=== PATIENT | male | born 1950 | race Caucasian/White ===

== ENCOUNTER 2020-10-27 14:40 | Emergency (ER) | payer OTHER, MEDICARE, SELFPAY ==
[2020-10-27 15:48] VITALS: BP 134/74; PULSE 106; RESP 20; TEMP 38.7; O2SAT 91; BMI 37.3
[2020-10-27 19:52] VITALS: BP 140/62; PULSE 88; RESP 20; TEMP 37.4; O2SAT 95
--- NOTE | 2020-10-27 19:58 | W.ED.FEVER ---
HPI - Fever General: Chief Complaint: Fever Stated Complaint: had teeth extracted 10.25,now fever,cough Time Seen by Provider: 10/27/20 19:54 History of Present Illness: HPI Narrative: This patient is a 70-year-old male who presents to the emergency department with complaint of fever. Patient had tooth extractions approximately 2 days ago but had his dentures placed in his mouth apparently after extraction and patient's been wearing his dentures consistently the entire time. Patient noticed that he started having some spiking fevers today. Patient is taking penicillin VK. Patient does have a history of COPD but denies any shortness of breath. On exam is concerning for possible frontal abscess or infection of the gumline. Dentures have been removed. Medical evaluation treat as needed MD elicited complaint: fever Associated symptoms: Deny abdominal pain, flank pain, chills, chest pain, dysuria, extremity pain, headache(s), nausea or vomiting Review of Systems General: Reports: 10 or more systems reviewed and unremarkable except in HPI and below Const: Reports: fever(s); Denies: chills, body aches or fatigue Eyes: Denies: change in vision or blurry vision ENMT: Reports: dental pain; Denies: throat pain, hoarseness or mouth pain Card: Denies: chest pain, palpitations, irregular heart rhythm, edema, swelling of feet/ankles or lightheadedness Resp: Denies: dyspnea, productive cough, non-productive cough, wheezing or pain on inspiration GI: Denies: abdominal pain, nausea or vomiting : Denies: flank pain, dysuria, urinary frequency, urinary urgency or urinary hesitancy Musc: Denies: neck pain, back pain, extremity pain, extremity swelling, joint pain, joint swelling, joint redness, joint warmth or limited range of motion Skin/Breast: Denies: rash, pruritus, erythema or skin tenderness Neuro: Denies: headache(s), numbness in extremities or weakness in extremities Psych: Denies: anxiety or depression Physical Exam Const: COMMON NORMALS: no acute distress, average body habitus, patient oriented x3, no limitations, healthy appearing, alert and well nourished HENMT: COMMON NORMALS: normocephalic, atraumatic, hearing grossly normal bilaterally, external ears normal, EAC's normal, TM's normal bilaterally, Normal external nose present, Normal nasal mucous membranes and turbinates present, moist oral mucous membranes, oropharynx normal and dentition normal HEAD & SCALP: normocephalic and atraumatic NOSE: Normal external nose present and Normal nasal mucous membranes and turbinates present EXTERNAL EAR: Yes external ears normal EXTERNAL AUDITORY CANAL: EAC's normal TYMPANIC MEMBRANE: TM's normal bilaterally TEETH & GINGIVA IMAGES: 1. Concerning for gingival infection. Neck/C-Spine: COMMON NORMALS: full ROM, no lymphadenopathy, supple, no meningeal signs, no JVD, Thyroid normal and No carotid bruits THYROID: Thyroid normal Chest: COMMONS NORMALS: normal inspection of the chest, normal palpation of entire chest wall, normal inspection of the breasts and normal palpation of the breasts Breast/axilla inspection: Yes normal inspection of the breasts BREAST/AXILLA PALPATION: Yes normal palpation of the breasts Resp: COMMON NORMALS: normal respiratory effort, No retractions, No use of accessory muscles, clear to auscultation bilaterally and percussion normal AUSCULTATION: clear to auscultation bilaterally PERCUSSION: percussion normal Cardio: COMMON NORMALS: no JVD, regular rate, regular rhythm, S1 normal heart sound present, S2 normal heart sound present, No gallops present (Cardio), No clicks present (Cardio), No murmurs present (Cardio), No rub (Cardio) and Peripheral pulses 2+ throughout RATE: regular rate RHYTHM: regular rhythm HEART SOUNDS: S1 normal heart sound present and S2 normal heart sound present PERIPHERAL PULSES: Peripheral pulses 2+ throughout GI: COMMON NORMALS: Normal to inspection, nondistended, normoactive bowel sounds present, Soft to palpation, non-tender, No hepatosplenomegaly present, no masses and no bruits PALPATION: Yes Soft to palpation and Yes No hepatosplenomegaly present : COMMON NORMALS: Yes no CVA tenderness BLADDER/KIDNEY EXAM: Yes no CVA tenderness Back/Pelvis: COMMON NORMALS: no CVA tenderness, thoracic and lumbar spine normal to inspection, no thoracic nor lumbar tenderness, thoraco-lumbar ROM normal and straight leg raise negative bilaterally Extremity: COMMON NORMALS: normal to inspection, full ROM, capillary refill normal, no joint enlargement, no clubbing, cyanosis or edema, no calf tenderness and no pedal edema Neuro: COMMON NORMALS: patient oriented x3 SENSORIUM/ORIENTATION: Yes alert MENINGEAL SIGNS: Yes no meningeal signs Course Reevaluation(s): Reevaluation #1: Patient appears to have infective gumline from related to his dentures and tooth extraction. Antibiotics will be changed to Augmentin. Patient is to follow-up with dentist as instructed. Time: 20:30 Vital Signs: Vital signs: Vital Signs Temperature 99.4 F 10/27/20 19:52 Pulse Rate 84 10/27/20 20:26 Respiratory Rate 18 10/27/20 20:26 Blood Pressure 149/87 10/27/20 20:26 Pulse Oximetry 94 10/27/20 20:26 MDM - Fever MDM Narrative: Medical decision making narrative: Take medications as instructed. Continue postoperative treatment with mouth rinses due to post extraction from dental surgery. Do not use dentures until evaluated by dentist in follow-up. Lab Data: Labs: Lab Results 10/27/20 Range/Units 20:00 SARS-CoV-2 Ag (Rap id) Negative (Negative) Discharge Plan Discharge Patient Disposition: Home Clinical Impression: Dental abscess, Status post tooth extraction Condition: Stable Prescriptions: New Augmentin 875-125 mg tablet 1 tab PO BID Qty: 20 RF: 0 No Action multivitamin Tablet 1 tab PO DAILY RF: 0 candesartan-hydrochlorothiazid 32-12.5 mg tablet 1 tab PO DAILY RF: 0 penicillin V potassium 500 mg tablet 500 mg PO Q6H RF: 0 hydrocodone-acetaminophen 10-325 mg tablet 1 tab PO Q6H PRN (Reason: Pain) RF: 0 Prozac 20 mg Capsule 20 mg PO DAILY RF: 0 Vitamin D3 125 mcg (5,000 unit) Tablet 125 mcg PO DAILY RF: 0 Trelegy Ellipta 100-62.5-25 mcg blister with device 1 inh INHALATION DAILY RF: 0 Discharge Orders: Discharge ED (Routine); Ordered 10/27/20 Ordered By: Daren Arvizu Referrals: Yung Douglass DO [Primary Care Provider] - Patient Instructions: Opioid Safety Activity Restrictions/Additional Instructions: Continue your current dental regimen for post tooth extraction. Do not wear dentures until followed up by dentist. Stop penicillin VK and take new medication as prescribed. Continue Tylenol Motrin as needed for fever pain. 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
[2020-10-27 20:24] LABS: SARS Covid-2 Antigen Negative (Negative)
[2020-10-27 20:26] VITALS: BP 149/87; PULSE 84; RESP 18; O2SAT 94
[2020-10-27 20:39] VITALS: BP 132/72; PULSE 93; RESP 18; O2SAT 94
== END 2020-10-27 20:40 | disposition home or self-care (01) ==
PROVIDERS: Emergency Medicine; Emergency Provider Emergency Medicine; PCP Family Medicine
DX: K04.7 Periapical abscess without sinus (principal); K08.409 Partial loss of teeth, unspecified cause, unspecified class; Z20.822 Contact with and (suspected) exposure to COVID-19
CPT/HCPCS: 87426; 99283

== ENCOUNTER → 2022-03-15 09:45 | Outpatient (BNVA) | payer MEDICARE, SELFPAY | PROVIDERS: PCP Family Medicine; Visit Provider Emergency Medicine | DX: R50.9 Fever, unspecified (principal); Z87.09 Personal history of other diseases of the respiratory system; J98.8 Other specified respiratory disorders; B97.89 Other viral agents as the cause of diseases classified elsewhere | CPT/HCPCS: 87400; 87426 ==

== ENCOUNTER 2023-11-04 18:23 | Emergency (ER) | payer OTHER, SELFPAY ==
[2023-11-04 18:31] VITALS: BP 153/69; PULSE 71; TEMP 36.4; O2SAT 94; BMI 37.3
--- NOTE | 2023-11-04 18:40 | XRR_ITS ---
PROCEDURE INFORMATION: Exam: XR Right Hand Exam date and time: 11/04/2023 7:04 PM Age: 73 years old Clinical indication: Injury or trauma; Fall; Blunt trauma (contusions or hematomas); Hand; Right; Injury details: Hurt RT pinky finger; Prior surgery; Surgery date: 6+ months; Surgery type: RT middle finger TECHNIQUE: Imaging protocol: Radiologic exam of the right hand. Views: 3 or more views. COMPARISON: No relevant prior studies available. FINDINGS: Bones/joints: No acute fractures. Posterior subluxation of the middle phalanx with respect to the proximal phalanx of the 5th digit. 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 Degenerative changes of right hand with joint space narrowing most pronounced at the D IP joint of the 5th digit. Soft tissues: Mild soft tissue swelling of the 5th digit. XR/XR hand RT min 3V* [id number] IMPRESSION: No acute fractures. Posterior subluxation of the middle phalanx with respect to the proximal phalanx of the 5th digit.
--- NOTE | 2023-11-04 19:12 | XRR_ITS ---
PROCEDURE INFORMATION: Exam: XR Right Finger(s) Exam date and time: 11/04/2023 7:19 PM Age: 73 years old Clinical indication: Other: Post reduction RT pinky finger; Additional info: Post redu TECHNIQUE: Imaging protocol: Radiologic exam of the right fingers. Views: Minimum 2 views. COMPARISON: CR (UP EX, ) 11/04/2023 7:04 PM FINDINGS: Bones/joints: Anatomic alignment of the 5th digit status post reduction. Small osseous fragments ventral to the PIP joint of the 5th digit which may represent small avulsion fractures. Soft tissue swelling of the 5th digit. 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 Degenerative changes of the 1st digit with joint space narrowing of the D IP joint. Soft tissues: See Bones/joints finding. XR/XR finger RT min 2V [id number] IMPRESSION: Anatomic alignment of the 5th digit status post reduction. Small osseous fragments ventral to the PIP joint of the 5th digit which may represent small avulsion fractures.
--- NOTE | 2023-11-04 19:16 | W.ED.EXTPRO ---
HPI - Extremity Problem General: Chief complaint: Extremity Injury, Upper Stated complaint: Right hand injury Time Seen by Provider: 11/04/23 19:12 Source: patient Mode of arrival: ambulatory Limitations: no limitations History of Present Illness: 73-year-old male states that he is working on a bike and was working in the chain and fell landed on his right pinky and states he bent his righ pinky backwards states not been able to move his pinky has had pain. He has obvious deformity to that pinky finger. He denies any other injuries rates his pain a 3 out of 10. Associated symptoms: Deny chest pain, fever(s) or rash Review of Systems Const: Denies: fever(s), chills, body aches or change in appetite ENMT: Denies: throat pain or dental pain Card: Denies: chest pain Resp: Denies: dyspnea GI: Denies: abdominal pain, nausea, vomiting or diarrhea Musc: Reports: extremity pain; Denies: neck pain or back pain Skin/Breast: Denies: rash Neuro: Denies: headache(s) [facility] ED PFSH: Medical History History of COPD Physical Exam Const: COMMON NORMALS: no acute distress, patient oriented x3 and healthy appearing HENMT: COMMON NORMALS: normocephalic and atraumatic HEAD & SCALP: normocephalic and atraumatic Neck/C-Spine: COMMON NORMALS: full ROM and supple Chest: COMMONS NORMALS: normal inspection of the chest Resp: COMMON NORMALS: normal respiratory effort Cardio: COMMON NORMALS: regular rate, regular rhythm and No murmurs present (Cardio) RATE: regular rate RHYTHM: regular rhythm Extremity: NARRATIVE EXTREMITY EXAM: Obvious dislocation to left pinky Neuro: COMMON NORMALS: patient oriented x3, moves all extremities and no focal motor deficits Psych: COMMON NORMALS: mental status grossly normal, Normal thought process present and cooperative THOUGHT PROCESS: Normal thought process present Skin: COMMON NORMALS: no rashes or lesions noted and no wounds GENERAL SKIN EXAM: no rashes or lesions noted Procedures Orthopedic Joint Reduction Joint #1: Time Out Performed: Yes Side: right Joint Reduction Location: finger Technique used: traction/counter-traction Post-reduction neuro exam: intact Post-reduction vascular: intact Post Reduction X-Ray Obtained: Yes Post Reduction X-Ray Results: reduced Splint Applied: Yes Patient Tolerated Procedure: well Course Vital Signs: Vital signs: Vital Signs Temperature 97.6 F 11/04/23 18:31 Pulse Rate 71 11/04/23 18:31 Blood Pressure 153/69 11/04/23 18:31 Pulse Oximetry 94 11/04/23 18:31 Oxygen Delivery Me thod Room Air 11/04/23 18:31 MDM - Extremity (Nontraumatic) Medical Decision Making Patient presents here with a right pinky dislocation. Patient's pain he was reduced here postreduction x-ray shows good reduction did place him in a finger splint we will get him follow-up with orthopedics he is return if worsening he understands agrees to plan. Medical Records I reviewed the patient's medical records. XR interpretation done by ED provider, pending radiology final review ED provider radiology interpretation(s): X-ray right hand dislocation to right pinky finger x-ray finger shows dislocated finger reduced Discharge Plan Discharge Patient Disposition: Home Clinical Impression: Dislocation closed, finger Qualifiers: Encounter type: initial encounter Qualified Code(s): S63.259A - Unspecified dislocation of unspecified finger, initial encounter Condition: Stable Prescriptions: No Action cholecalciferol (vitamin D3) 50 mcg (2,000 unit) capsule 50 mcg PO DAILY fexofenadine-pseudoephedrine [Ynes-D 12 Hour] 60-120 mg tablet extended release 12 hr 1 tab PO Q12H PRN (Reason: sinus symptoms) 14 Days Qty: 30 0RF furosemide 20 mg tablet 20 mg PO DAILY potassium chloride 20 mEq tablet,ER particles/crystals 20 meq PO DAILY albuterol sulfate [Ventolin HFA] 90 mcg/actuation HFA aerosol inhaler 1 inh inhalation QID zinc gluconate 50 mg tablet 50 mg PO DAILY doxycycline hyclate 100 mg capsule 100 mg PO BID 10 Days Qty: 20 0RF Rx Instructions: Take with food prednisone 20 mg tablet 20 mg PO DAILY Qty: 18 0RF Rx Instructions: Take 60mg (3 tabs) days 1, 2, 3 Take 40mg (2 tabs) days 4,5,6 take 20mg (1 tab) days 7,8,9 multivitamin Tablet 1 tab PO DAILY candesartan-hydrochlorothiazid 32-12.5 mg tablet 1 tab PO DAILY hydrocodone-acetaminophen 10-325 mg tablet 1 tab PO Q6H PRN (Reason: Pain) Prozac 20 mg Capsule 20 mg PO DAILY Trelegy Ellipta 100-62.5-25 mcg blister with device 1 inh INHALATION DAILY Discharge Orders: Discharge ED (Routine); Ordered 11/04/23 Ordered By: Katheryn Mcclelland Referrals: Jamison Tsai DO [Physician] - 1-3 days Yung Douglass DO [Primary Care Provider] - Discharge Diet: Advance as tolerated Discharge Activity: Resume usual activity Patient Instructions: Dislocation - Finger Coding Level of Care 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
[2023-11-04 19:25] VITALS: BP 126/71; PULSE 61; RESP 16; O2SAT 97
--- NOTE | 2023-11-06 08:06 | DCPLANNER ---
messaged ortho for er f/u
== END 2023-11-04 19:27 | disposition home or self-care (01) ==
PROVIDERS: Emergency Provider Emergency Medicine; PCP Family Medicine
DX: S63.256A Unspecified dislocation of right little finger, initial encounter (principal); W20.8XXA Other cause of strike by thrown, projected or falling object, initial encounter; J44.9 Chronic obstructive pulmonary disease, unspecified
CPT/HCPCS: 26770; 73130; 73140; 99283

== ENCOUNTER → 2023-11-12 14:35 | Outpatient (BNVA) | payer OTHER, SELFPAY | PROVIDERS: PCP Family Medicine; Referring Provider Emergency Medicine; Visit Provider Orthopaedic Surgery | DX: S63.286D Dislocation of proximal interphalangeal joint of right little finger, subsequent encounter (principal); V86.96XD Unspecified occupant of dirt bike or motor/cross bike injured in nontraffic accident, subsequent encounter | CPT/HCPCS: 73130; 99203 ==